=== PATIENT | female | born 1990 | race Two or more races ===

== ENCOUNTER 2022-06-25 09:00 | Outpatient (CLI) | payer OTHER | END 2022-06-25 09:05 | disposition home or self-care (01) | LOC: PPH VACUNA 09:00 | PROVIDERS: ATTEND Emergency Medicine Pediatric Emergency Medicine | DX: Z23 Encounter for immunization (principal) ==

== ENCOUNTER 2023-03-01 09:23 | Outpatient (CLI) | payer OTHER | END 2023-03-01 09:27 | disposition home or self-care (01) | LOC: LAB 09:23 | PROVIDERS: ATTEND Obstetrics & Gynecology | DX: I10 Essential (primary) hypertension (principal); E03.9 Hypothyroidism, unspecified; E78.00 Pure hypercholesterolemia, unspecified; N91.0 Primary amenorrhea; E55.9 Vitamin D deficiency, unspecified; Z21 Asymptomatic human immunodeficiency virus [HIV] infection status; R79.9 Abnormal finding of blood chemistry, unspecified; R79.89 Other specified abnormal findings of blood chemistry; Z00.00 Encounter for general adult medical examination without abnormal findings ==

== ENCOUNTER 2023-03-10 08:16 | Outpatient (CLI) | payer OTHER | END 2023-03-10 08:26 | disposition home or self-care (01) | LOC: SONOGRAMA 08:16 | PROVIDERS: ATTEND Obstetrics & Gynecology | DX: N94.0 Mittelschmerz (principal); R10.2 Pelvic and perineal pain; N94.89 Other specified conditions associated with female genital organs and menstrual cycle ==

== ENCOUNTER 2023-04-01 06:51 | Outpatient (CLI) | payer OTHER | END 2023-04-01 15:04 | disposition home or self-care (01) | LOC: MRI 06:51 | PROVIDERS: ATTEND Obstetrics & Gynecology | DX: E22.1 Hyperprolactinemia (principal) | CPT/HCPCS: 70553 ==

== ENCOUNTER 2023-05-10 07:05 | Outpatient (CLI) | payer OTHER | END 2023-05-10 07:09 | disposition home or self-care (01) | LOC: LAB 07:05 | PROVIDERS: ATTEND Emergency Medicine | DX: D64.9 Anemia, unspecified (principal) ==

== ENCOUNTER 2023-05-10 16:21 | Emergency (ER) | payer OTHER ==
[~2023-05-10] VITALS: Ht 147.3 cm; Wt 86.2 kg
== END 2023-05-10 18:18 | disposition home or self-care (01) ==
LOC: ER 16:21
DX: A49.3 Mycoplasma infection, unspecified site (principal); R53.81 Other malaise; Z20.822 Contact with and (suspected) exposure to COVID-19

== ENCOUNTER 2023-10-21 00:39 | Emergency (ER) | payer OTHER ==
[~2023-10-21] VITALS: Ht 147.3 cm; Wt 90.7 kg
[~2023-10-21 00:39] MED LIST: ONDANSETRON ODT8 MG PO; PEPCID AC20 MG PO
[2023-10-21] MEDS ORDERED: KETOROLAC TROMETHAMINE 30 MG VIAL IV STA (04:05)
[2023-10-21] MEDS ORDERED: RINGERS SOLUTION,LACTATED 500 ML IV STA (04:05)
[2023-10-21] MEDS ORDERED: ONDANSETRON HCL 2 MG/ML VIAL IV STA (04:06)
[2023-10-21 04:29] LABS: HEMATOCRIT 37.1 % (36.0-45.00); HEMOGLOBIN 12.5 g/dL (12.0-15.00); MEAN CELL VOLUME 84.7 fL (80.00-100.00); MEAN CORPUSCULAR HEMOGLOBIN 28.6 pg (27.00-32.0); MEAN CORPUSCULAR HGB CONC 33.8 g/dl (32.0-36.0); PLATELET COUNT 233 K/uL (150-450); RED BLOOD COUNT 4.38 M/uL (4.00-6.00); RED CELL DISTRIBUTION WIDTH 14.1 % (11.5-14.5)
[2023-10-21 04:45] LABS: CALCIUM 9.1 mg/dL (8.5-10.1); GFR 133.68; POTASSIUM 4.11 mEq/L (3.5-5.1)
[2023-10-21 04:47] LABS: CREATININE SERUM 0.53 mg/dL (0.55-1.02)
== END 2023-10-21 05:59 | disposition home or self-care (01) ==
LOC: ER 00:39
DX: U07.1 COVID-19 (principal); G43.909 Migraine, unspecified, not intractable, without status migrainosus

== ENCOUNTER 2024-01-18 09:40 | Emergency (ER) | payer OTHER ==
[~2024-01-18] VITALS: Ht 147.3 cm; Wt 93.0 kg
[2024-01-18] MEDS ORDERED: ACETAMINOPHEN 500 MG GEL..CAP PO ONE (10:15)
[2024-01-18 10:29] LABS: HEMATOCRIT 37.6 % (36.0-45.00); MEAN CORPUSCULAR HEMOGLOBIN 29.5 pg (27.00-32.0); MEAN CORPUSCULAR HGB CONC 34.7 g/dl (32.0-36.0); PLATELET COUNT 259 K/uL (150-450); RED BLOOD COUNT 4.42 M/uL (4.00-6.00); RED CELL DISTRIBUTION WIDTH 13.7 % (11.5-14.5)
== END 2024-01-18 12:08 | disposition home or self-care (01) ==
LOC: ER 09:40
PROVIDERS: General Practice
DX: B34.9 Viral infection, unspecified (principal); R53.81 Other malaise; R53.1 Weakness; R50.9 Fever, unspecified

== ENCOUNTER 2024-06-28 22:16 | Emergency (ER) | payer OTHER ==
[~2024-06-28] VITALS: Ht 147.3 cm; Wt 93.0 kg
[2024-06-28] MEDS ORDERED: BACTRIM DS TAB1 EACH PO (22:37)
[2024-06-28] MEDS ORDERED: PEPCID AC20 MG PO (22:37)
[2024-06-28] MEDS ORDERED: TAMS0.4C PO (22:37)
[2024-06-28] MEDS ORDERED: PYRIDIUM200 MG PO (22:37)
[2024-06-28] MEDS ORDERED: CEFTRIAXONE SODIUM 1,000 MG VIAL IM ONE (22:45)
[2024-06-28] MEDS ORDERED: TAMSULOSIN HCL 0.4 MG CAP PO ONE (22:45)
[2024-06-28] MEDS ORDERED: KETOROLAC TROMETHAMINE 60 MG VIAL IM ONE (22:45)
== END 2024-06-28 23:38 | disposition home or self-care (01) ==
LOC: ER 22:16
DX: N39.0 Urinary tract infection, site not specified (principal)

== ENCOUNTER 2024-11-04 22:31 | Emergency (ER) | payer OTHER ==
[~2024-11-04] VITALS: Ht 147.3 cm; Wt 90.7 kg
[~2024-11-04 22:31] MED LIST changes: +BACTRIM DS TAB1 EACH PO; +PYRIDIUM200 MG PO; +TAMS0.4C PO
[2024-11-04] MEDS ORDERED: ANTICONCEPTIVAS (22:34)
[2024-11-04] MEDS ORDERED: 0.9 % SODIUM CHLORIDE 1,000 ML IV STA (23:04)
[2024-11-04] MEDS ORDERED: ONDANSETRON HCL 2 MG/ML VIAL IV ONE (23:15)
[2024-11-04] MEDS ORDERED: FAMOTIDINE/PF 20 MG/2 ML VIAL IV ONE (23:15)
[2024-11-04 23:55] LABS: HEMATOCRIT 36.9 % (36.0-45.00); HEMOGLOBIN 12.5 g/dL (12.0-15.00); MEAN CELL VOLUME 85.5 fL (80.00-100.00); MEAN CORPUSCULAR HGB CONC 33.9 g/dl (32.0-36.0); PLATELET COUNT 256 K/uL (150-450); RED BLOOD COUNT 4.32 M/uL (4.00-6.00); RED CELL DISTRIBUTION WIDTH 13.9 % (11.5-14.5)
[2024-11-05 00:26] LABS: ALBUMIN 3.5 gm/dL (3.4-5.0); BILIRUBIN TOTAL 0.53 mg/dL (0.3-1.2); CALCIUM 9.1 mg/dL (8.5-10.1); CREATININE SERUM 0.68 mg/dL (0.55-1.02); GFR 99.65; GLOBULINA 3.8 G/DL (2.4-3.5); POTASSIUM 3.92 mEq/L (3.5-5.1); TOTAL PROTEIN 7.3 gm/dL (6.4-8.2)
[2024-11-05] MEDS ORDERED: METOCLOPRAMIDE HCL 5 MG/ML VIAL IM STA (03:18)
== END 2024-11-05 03:35 | disposition home or self-care (01) ==
LOC: ER 22:31
PROVIDERS: Emergency Medicine
DX: K52.9 Noninfective gastroenteritis and colitis, unspecified (principal)

== ENCOUNTER 2025-07-25 08:22 | Outpatient (CLI) | payer OTHER ==
[~2025-07-25 08:22] MED LIST changes: +ANTICONCEPTIVAS
[2025-07-25 09:14] LABS: BASO % 0.3 % (0.1-1.2); EOS # 0.08 (0.04-0.54); EOS % 0.9 % (0.7-7.0); LYMPH # 2.64 (1.18-3.74); LYMPH % 30.7 % (19.3-53.1); MEAN PLATELET VOLUME 9.50 fl (9.4-12.4); MONO # 0.46 (0.24-0.82); MONO % 5.4 % (4.7-12.5); NEUT # 5.36 (1.56-6.13); NEUT % 62.5 % (34.0-71.1); RED CELL DISTRIBUTION WIDTH 12.3 % (11.6-14.4)
[2025-07-25 09:38] LABS: URINE APPEARANCE Clear; URINE BILIRRUBIN Negative (NEGATIVE); URINE BLOOD Small; URINE COLOR Dark Yellow; URINE GLUCOSE Negative (NEGATIVE); URINE KETONE Negative (NEGATIVE); URINE LEUKOCYTE Negative; URINE NITRATE Negative; URINE PROTEIN 30 (NEGATIVE); URINE UROBILINOGEN 1.0 E.U./dl
[2025-07-25 09:39] LABS: URINE EPITHELIAL CELLS 76.9 uL (0.0-38.8); URINE RBC 10.8 uL (0.0-20.8); URINE WBC 18.1 uL (0.0-23.2)
[2025-07-25 09:47] LABS: URINE CAST 0.00 uL (0.0-1.40)
[2025-07-25 10:30] LABS: ALT/SGPT 89.0 U/L (12-78); AST/SGOT 38.0 U/L (15-37); BILIRUBIN TOTAL 0.51 mg/dL (0.3-1.2); BUN CREA RATIO 19.0 (7.0-25.0); CHOL HDL RATIO 4.3 (0-5.0); CREATININE SERUM 0.58 mg/dL (0.55-1.02); GFR 119.72; GLOBULINA 3.3 G/DL (2.4-3.5); GLUCOSE FASTING 104.0 mg/dL (65-100); HDL 52.0 mg/dl (40-60); LDL 137.0 mg/dl (0-130); OSMOLALITY SERUM 279.0 MOSM/KG (275-295); T3 UPTAKE 30.0 % (30-39); T4 FREE 1.19 NG/ML (0.76-1.46); TSH 1.85 uIU/mL (0.358-3.74); VLDL 34.0 (0-39)
== END 2025-07-26 07:40 | disposition home or self-care (01) ==
LOC: LAB 08:22
PROVIDERS: ATTEND General Practice
DX: Z00.01 Encounter for general adult medical examination with abnormal findings (principal)